=== PATIENT | female | born 1985 | race Two or more races ===

== ENCOUNTER 2024-12-24 20:00 | Emergency (ER) | payer MEDICAID, SELFPAY ==
[2024-12-24 20:00] VITALS: BMI 28.3
[2024-12-24 20:34] VITALS: BP 114/79; PULSE 74; RESP 20; TEMP 37; O2SAT 98
--- NOTE | 2024-12-24 20:56 | PD.EDADULT ---
ED General RME/HPI General Chief complaint: Extremity Problem,Nontraumatic Stated complaint: RIGHT SCIATICA PAIN Time Seen by Provider: 12/24/24 20:44 Arrival date/time: 12/24/24 20:00 Limitations: no limitations RME / HPI RME / HPI narrative: 39-year-old female presents to the ED with a several hour history of right sided sciatica pain. She has a history of sciatica and states that she usually gets a shot when she comes to the ER. Pain began after she was doing some yard work today. She denies any loss of bladder or bowel control. She denies any numbness or tingling to her extremities. She denies any recent illness with fever, chills, cough, upper respiratory complaints, nausea or vomiting, diarrhea or abdominal pain. She has not tried any Tylenol, ibuprofen, ice or heat. Related Data Previous Rx's ?Medication ?Instructions ?Recorded acetaminophen 650 mg 650 mg PO Q8H PRN pain #30 tabs 12/24/24 tablet,extended release ibuprofen 600 mg tablet 600 mg PO TID PRN pain #30 tabs 12/24/24 Allergies Allergy/AdvReac Type Severity Reaction Status Date / Time No Known Allergies Allergy Verified 12/24/24 20:02 Review of Systems Review of Systems Systems Reviewed: All systems reviewed, normal except as documented Past Medical History Social History SMOKING STATUS: Never smoker ED Exam Narrative Physical exam: Alert and oriented 39-year-old female, no acute distress. Minimal tenderness to the lumbar spine with minimal tenderness to the right SI joint area. No sciatic notch tenderness bilaterally. Negative straight leg raise. Lungs are clear, regular rate and rhythm without murmurs, abdomen is soft and nontender with no rebound or guarding. No CVA tenderness is noted. Equal pedal push/pull. Sensory and motor are intact distally. General Limitations: Present no limitations General appearance: Present alert and in no apparent distress Course Course Course Narrative: 39-year-old female presents to the ED with a several hour history of right sided sciatica pain. She has a history of sciatica and states that she usually gets a shot when she comes to the ER. Pain began after she was doing some yard work today. She denies any loss of bladder or bowel control. She denies any numbness or tingling to her extremities. She denies any recent illness with fever, chills, cough, upper respiratory complaints, nausea or vomiting, diarrhea or abdominal pain. She has not tried any Tylenol, ibuprofen, ice or heat. Alert and oriented 39-year-old female, no acute distress. Minimal tenderness to the lumbar spine with minimal tenderness to the right SI joint area. No sciatic notch tenderness bilaterally. Negative straight leg raise. Lungs are clear, regular rate and rhythm without murmurs, abdomen is soft and nontender with no rebound or guarding. No CVA tenderness is noted. Equal pedal push/pull. Sensory and motor are intact distally. Patient was given meloxicam 15 mg p.o. She will be discharged home with prescription for Motrin and Tylenol for home use. She was advised to use ice packs for the first 2 or 3 days and then switch to heat and continue with whichever feels best. She was also advised to follow-up with her primary care physician for follow-up if her symptoms are not improving. Quality Measures none Orders Category Date Time Status Meloxicam [Mobic] Med 12/24/24 20:59 Discontinued 15 mg PO X1 ONE Vital Signs Vital signs: Vital Signs Temperature 98.6 F 12/24/24 20:34 Pulse Rate 74 12/24/24 20:34 Respiratory Rate 20 12/24/24 20:34 Blood Pressure 114/79 12/24/24 20:34 Pulse Oximetry (%) 98 12/24/24 20:34 Oxygen Delivery Method Room Air 12/24/24 20:34 Discharge Plan Plan Patient Disposition: HOME (Self Care) Discharge Disposition comment: Stable and improved Prescriptions/Referrals Prescriptions/Med Rec: New ibuprofen 600 mg tablet 600 mg PO TID PRN (Reason: pain) Qty: 30 0RF acetaminophen 650 mg tablet extended release 650 mg PO Q8H PRN (Reason: pain) Qty: 30 0RF Problem List Clinical Impression: Sciatica of right side Patient/Caregiver Discharge Instructions Education Materials: ED Sciatica Additional Instructions: Use the Tylenol and Motrin as prescribed. Follow-up with your primary care physician in 24 to 48 hours. Return to the ED for any new or worsening symptoms. Print Language: Luxembourgish Stand Alone Forms: Bee Award Info., Patient Portal Info Letter PA/[employer] Supervising Physician PA/[employer] Supervising Physician: Dr Elizabeth POWERS Narrative Sign out note: N/A [facility] hospital course: 39-year-old female presents to the ED with a several hour history of right sided sciatica pain. She has a history of sciatica and states that she usually gets a shot when she comes to the ER. Pain began after she was doing some yard work today. She denies any loss of bladder or bowel control. She denies any numbness or tingling to her extremities. She denies any recent illness with fever, chills, cough, upper respiratory complaints, nausea or vomiting, diarrhea or abdominal pain. She has not tried any Tylenol, ibuprofen, ice or heat. Alert and oriented 39-year-old female, no acute distress. Minimal tenderness to the lumbar spine with minimal tenderness to the right SI joint area. No sciatic notch tenderness bilaterally. Negative straight leg raise. Lungs are clear, regular rate and rhythm without murmurs, abdomen is soft and nontender with no rebound or guarding. No CVA tenderness is noted. Equal pedal push/pull. Sensory and motor are intact distally. Patient was given meloxicam 15 mg p.o. She will be discharged home with prescription for Motrin and Tylenol for home use. She was advised to use ice packs for the first 2 or 3 days and then switch to heat and continue with whichever feels best. She was also advised to follow-up with her primary care physician for follow-up if her symptoms are not improving. Clinical Information Provided by patient Medical Records Reviewed None Meds/Rx Considered, not Ordered None Labs/Rad/Tests considered, not Ordered None Chronic Illness/Social Conditions which may negatively complicate care or outcome(s)-explain: None or not applicable EKG EKG not done Lab Interpretation Labs: none Imaging Imaging interpretation: none Medication Administration(s) Medication Administration History Discontinued Medications Meloxicam (Meloxicam 7.5 Mg Tablet) 15 mg PO X1 ONE Stop: 12/24/24 21:00 Meloxicam 15mg PO. Diagnosis Differential diagnosis: Low back strain, DDD, exacerbation of sciatica, sacroilitis Most likely dx, and/or detailed dx discussion: Low back strain, exacerbation of sciatica. Dispositon Disposition: Discharge Home
[2024-12-24] MEDS: MELOXICAM 7.5 MG TABLET 15 MG PO (22:35)
== END 2024-12-24 22:38 | disposition home or self-care (01) ==
PROVIDERS: Emergency Provider Emergency Medicine; PCP Family Medicine
DX: M54.31 Sciatica, right side (principal)
CPT/HCPCS: 99282; A9270